=== PATIENT | male | born 1950 | race Caucasian/White ===

== ENCOUNTER 2023-06-15 08:27 | Outpatient (CLI) | payer MEDICARE, SELFPAY | END 2023-06-15 08:28 | disposition home or self-care (01) | PROVIDERS: PCP Family Medicine; Visit Provider Family Medicine | DX: Z13.1 Encounter for screening for diabetes mellitus (principal); Z13.220 Encounter for screening for lipoid disorders; Z13.21 Encounter for screening for nutritional disorder | CPT/HCPCS: 80048; 80061; 82607 ==

== ENCOUNTER 2023-07-30 07:05 | Outpatient (CLI) | payer MEDICARE, SELFPAY ==
--- NOTE | 2023-07-30 08:11 | W.ANESCHARGE ---
Anesthesia Charges Start Date/Time Anesthesia Start Date: 07/30/23 Anesthesia Start Time: 08:15 Stop Date/Time Anesthesia Stop Date: 07/30/23 Anesthesia Stop Time: 08:47 Summary Extremes of Age - Over 70 or under 1: H[employer]OCIATE
--- NOTE | 2023-07-30 10:05 | W.ANESCHARGE ---
Anesthesia Charges Start Date/Time Anesthesia Start Date: 07/30/23 Anesthesia Start Time: 08:15 Stop Date/Time Anesthesia Stop Date: 07/30/23 Anesthesia Stop Time: 08:47 Summary Extremes of Age - Over 70 or under 1: MDA
== END 2023-07-30 07:06 | disposition home or self-care (01) ==
LOC: OP CLINIC 07:06
PROVIDERS: PCP Family Medicine; Visit Provider Surgery
DX: Z12.11 Encounter for screening for malignant neoplasm of colon (principal); Z86.010 Personal history of colon polyps
CPT/HCPCS: 00812; 45378; 99100; J2704

== ENCOUNTER 2024-12-24 13:15 | Outpatient (CLI) | payer MEDICARE, SELFPAY | END 2024-12-24 13:16 | disposition home or self-care (01) | PROVIDERS: PCP Family Medicine; Visit Provider Family Medicine | DX: Z13.1 Encounter for screening for diabetes mellitus (principal); Z13.6 Encounter for screening for cardiovascular disorders | CPT/HCPCS: 80048; 80061 ==

== ENCOUNTER 2025-03-09 07:57 | Emergency (ER) | payer MEDICARE, SELFPAY ==
[2025-03-09] VITALS (17 sets, daily range): BP systolic 134–213; BP diastolic 75–103; PULSE 49–72; RESP 11–17; TEMP 35.3; O2SAT 93–98; BMI 27.1
--- NOTE | 2025-03-09 08:14 | CRLHL7_ITS ---
For Patients: As a result of the Century Cures Act, medical imaging exams and procedure reports are released immediately into your electronic medical record. You may view this report before your referring provider. If you have questions, please contact your health care provider. INDICATION: CORNELIUS, LEFT EYE VISUAL DISTURBANCE COMPARISON: none TECHNIQUE: A CT volumetric acquisition was performed of the brain without IV contrast. Please note that all CT scans at this facility use dose modulation, iterative reconstruction, and/or weight-based dosing when appropriate to reduce radiation dose to as low as reasonably achievable. FINDINGS: No intracranial hemorrhage, mass or mass effect. Mild periventricular and subcortical white matter noted bilaterally. No hydrocephalus or extra-axial fluid. No midline shift. Minimal bilateral sinus disease. Degenerative joint disease at the left temporomandibular joint. IMPRESSION: No intracranial hemorrhage or hydrocephalus. Please note that all CT scans at this facility use dose modulation, iterative reconstruction, and/or weight-based dosing when appropriate to reduce radiation dose to as low as reasonably achievable. Dictated by Jerry Mari MD @ 03/09/2025 8:58:42 AM (Electronically Signed)
--- NOTE | 2025-03-09 08:17 | ED.CHESTPAIN ---
HPI - Chest Pain General Time Seen by Provider: 08:17 Date Seen: 03/09/25 Chief Complaint: Chest Pain Stated Complaint: Chest/R arm pain Time Seen by Provider: 03/09/25 08:16 Source: patient and RN notes reviewed Mode of arrival: ambulatory Limitations: no limitations History of Present Illness HPI narrative: This 75-year-old male is reporting sharp stabbing chest pain in his right chest at 6:30 a.m. this morning, went through to his back, up his neck and down his right arm. He states his initial pain was 10/10, has improved down to 3/10. He started to note kaleidoscope vision in his left eye during triage. The chest pain started suddenly around 630 this morning, felt a stabbing sharp pain in his right upper chest, went into his back, accompanied referred pain into his right arm, right neck. His right arm felt numb and tingly with this. He has had an episode like this a couple months ago but did not get evaluated. Like this, it came on suddenly and then slowly went away. His continues to improve. There is no associated shortness of breath, no associated nausea or GI symptoms. He has not felt any palpitations. He had brief episode of the visual disturbances after arriving here, noticed it more in his left eye. Has had episodes of this type of visual change before. He states he also has floaters, 3 different types in his eyes. His eye doctor is aware. His visual disturbance is gone now. He also notes years ago he had an episode where he just suddenly lost the use of his right arm, was numb and tingly and ??. By the time he got to the doctor, symptoms had improved. He states they did ?scans and did not find anything. He is on no blood thinners, did tell nursing staff he had a slight right headache at this time as well. He has no prior cardiac history or vascular history. Patient's mom of congestive heart failure at age 91 or 92. His dad old age and natural causes as far as they know. There is no known underlying cardiac disease like heart attacks or vascular surgeries in his family that he is aware of. Related Data Home Medications ?Medication ?Instructions ?Recorded ?Confirmed No Known Home Medications 03/09/25 03/09/25 Allergies Allergy/AdvReac Type Severity Reaction Status Date / Time Filbert Allergy Unknown Uncoded 12/24/24 12:40 Review of Systems Status of ROS Reports: 6 or more systems reviewed and unremarkable except as noted in History and below PFSH PFS Medical History Seasonal allergic rhinitis (03/20/11) ?J30.2 - Other seasonal allergic rhinitis (ICD-10) Surgical History S/P right knee arthroscopy ?Z98.890 - Other specified postprocedural states (ICD-10) Status post laparotomy ?Z98.890 - Other specified postprocedural states (ICD-10) Status post bilateral inguinal hernia repair (02/15/09) ?Z98.890 - Other specified postprocedural states (ICD-10) ?Z87.19 - Personal history of other diseases of the digestive system (ICD-10) History of colonoscopy ?Z98.890 - Other specified postprocedural states (ICD-10) History of cholecystectomy ?Z90.49 - Acquired absence of other specified parts of digestive tract (ICD-10) Family History Other Colon cancer Social History What is your current living situation?: I presently have a place to live Problems where you live: no known problems In the past 12 months, utilities in danger of being shut off: no In past 12 months, lack of transportation kept you from medical appts, meetings, work, or getting things needed for daily living: no In the past 12 mos, have been you worried that your food would run out before you had money to buy more?: never true In the past 12 mos, the food you bought just didn't last and you didn't have money to buy more?: never true How often does anyone, including family, friends and others, physically hurt you: never How often does anyone, including family, friends and others, insult or talk down to you: never How often does anyone, including family, friends and others, threaten you with harm: never How often does anyone, including family, friends and others, scream or curse at you: never Exam Const Vital Signs, click to edit/add: Vital Signs - 24 hr 03/09/25 08:01 03/09/25 08:12 03/09/25 08:25 Temperature 95.5 F L Pulse Rate 54 L Pulse Rate [Pulse Oximeter] 72 Respiratory Rate 16 Blood Pressure 165/85 H Blood Pressure [Left Upper Arm] 179/84 H Blood Pressure [Right Upper Arm] 213/78 H Pulse Oximetry 98 97 97 Oxygen Delivery Method Room Air 03/09/25 08:30 03/09/25 08:31 03/09/25 08:32 Temperature Pulse Rate 50 L 52 L 50 L Pulse Rate [Pulse Oximeter] Respiratory Rate 16 12 16 Blood Pressure 151/79 H Blood Pressure [Left Upper Arm] Blood Pressure [Right Upper Arm] Pulse Oximetry 97 96 97 Oxygen Delivery Method 03/09/25 08:59 03/09/25 09:00 03/09/25 09:01 Temperature Pulse Rate 50 L 50 L 50 L Pulse Rate [Pulse Oximeter] Respiratory Rate 11 L 14 16 Blood Pressure 172/103 H Blood Pressure [Left Upper Arm] Blood Pressure [Right Upper Arm] Pulse Oximetry 97 96 97 Oxygen Delivery Method 03/09/25 09:03 03/09/25 09:15 03/09/25 09:17 Temperature Pulse Rate 49 L 49 L 50 L Pulse Rate [Pulse Oximeter] Respiratory Rate 16 16 14 Blood Pressure 161/88 H 134/75 Blood Pressure [Left Upper Arm] Blood Pressure [Right Upper Arm] Pulse Oximetry 98 96 96 Oxygen Delivery Method 03/09/25 09:18 03/09/25 09:30 03/09/25 09:32 Temperature Pulse Rate 49 L 50 L 51 L Pulse Rate [Pulse Oximeter] Respiratory Rate 16 17 15 Blood Pressure 149/86 H Blood Pressure [Left Upper Arm] Blood Pressure [Right Upper Arm] Pulse Oximetry 96 95 93 Oxygen Delivery Method 03/09/25 09:45 03/09/25 09:46 Temperature Pulse Rate 52 L 51 L Pulse Rate [Pulse Oximeter] Respiratory Rate 14 16 Blood Pressure 154/75 H Blood Pressure [Left Upper Arm] Blood Pressure [Right Upper Arm] Pulse Oximetry 94 94 Oxygen Delivery Method Initial blood pressures noted, his blood pressure systolic is now down to 160s. He is alert, interactive, no apparent distress. Sitting upright and comfortable appearing in exam room 8. Denies any visual disturbances, no gross visual abnormality on confrontation. Pupils are equal round reactive, sclera clear, extraocular muscles intact. Symmetrical facial function, speech normal. Neck slender, no jugular venous distension, no masses. Lungs are clear, good air entry, no wheezing crackles, no tachypnea, no accessory muscle use. CV regular rate and rhythm, no murmur, normal S1-S2. Abdomen is soft, nontender, nondistended, organomegaly, rebound or guarding. He has no lower extremity edema. Strength is 5 5 and symmetric throughout his upper extremities, can lift each leg off the bed. He has no baseline tremors. He has normal [id number], has seemingly normal light touch sensation at this time. On initial examination, would give him an NIH of 0 at this time. Documenting provider has reviewed patient's vital signs: yes Course Course ED Course: This is a 75-year-old male coming in with sudden right-sided chest pain. Coronary ischemia certainly could be a possibility but other vascular etiologies like dissection need to be considered. With his visual changes, certainly need to consider vascular etiologies. We are going to start with a noncontrast head CT. His symptoms that would be considered neurologic with the visual changes are gone now. I do think we have some time to work through this and get appropriate vascular imaging if need be. We will do a D-dimer, if this is elevated, do think we need to look at the triple a protocol and potentially could at in had vascular imaging with that as well, would have to talk to Radiology to see if they can do both protocols together if needed. Right now his blood pressure has improved, came in quite hypertensive. His initial EKG is reassuring, he is still in sinus bradycardia on his monitor when I am in with him. He will be monitored on cardiac monitoring for arrhythmia, changes in his EKG, will follow with pulse oximetry to look for hypoxia as well. May ultimately need to talk to Neurology, plus-minus cardiology on this patient. He does not think he has ever had any cardiac stress testing. Reevaluation(s) Time of Reevaluation #1: 09:57 Reevaluation #1: Patient's is present now. Reviewed that the initial labs, head CT, chest x-ray are all reassuring. His D-dimer is normal. He feels much better, me be feels just a little residual something but no significant pain at this time. We did review that we will do a follow-up heart enzyme at 10:20 a.m. to ensure no changing. This is normal, likely discharge to home. He notes the last time this happened, he had not ate or drank anything. He had not eaten breakfast this morning, no coughing no oral intake. I do suppose it could be GI related but it is difficult to say at this time. He sees Dr. Franklin, can have him follow up in clinic with him, they can review further testing such as cardiac stress testing. He does have an eye doctor appointment coming up in 2 weeks which I have was happy to hear he has. I was going to recommend that he follow-up with the eye doctor as well. Await his follow-up troponin result. Time of Reevaluation #2: 11:08 Reevaluation #2: Have reviewed with patient and his that his labs have come back normal. He is without any concerning symptoms at this time. We did discuss heart disease and heart blockages specifically. They had questions as to how we figure out people need to go to bypass. Reviewed with them that if people have vessel disease significant enough for bypass, we usually see changes within the EKGs or troponins, those patients may have heart attacks. He has not been completely ruled out for heart disease but it is unlikely that he has any critical stenosis at this time, has not had a heart attack, has no evidence of any elevated troponins. We did discuss alternate etiologies like esophageal problems, he does have underlying GERD. He can talk to his primary more about this. I do think they should proceed with cardiac stress testing but will leave this to his primary. Other testing like EGD or even possibly swallow study down the road if he has ongoing symptoms may need to be considered and etiologies not being found. His primary care provider is very capable of addressing this with him. Vital Signs Vital signs: Initial Vital Signs Temperature 95.5 F L 03/09/25 08:01 Temperature Source Temporal Artery Scan 03/09/25 08:01 Pulse Rate 72 03/09/25 08:01 Respiratory Rate 16 03/09/25 08:01 Blood Pressure 213/78 H 03/09/25 08:01 Blood Pressure Mean 123 H 03/09/25 08:01 Blood Pressure Position Sitting 03/09/25 08:01 Pulse Oximetry 98 03/09/25 08:01 Oxygen Delivery Method Room Air 03/09/25 08:01 Vital Signs Temperature 95.5 F L 03/09/25 08:01 Pulse Rate 72 03/09/25 08:01 Respiratory Rate 16 03/09/25 08:01 Blood Pressure 213/78 H 03/09/25 08:01 Pulse Oximetry 98 03/09/25 08:01 Oxygen Delivery Method Room Air 03/09/25 08:01 Temperature 95.5 F L 03/09/25 08:01 Pulse Rate 51 L 03/09/25 09:46 Respiratory Rate 16 03/09/25 09:46 Blood Pressure 154/75 H 03/09/25 09:46 Pulse Oximetry 94 03/09/25 09:46 Oxygen Delivery Method Room Air 03/09/25 08:01 MDM - Chest Pain Lab Data Attestation: I reviewed the patient's lab results. Labs: Lab Results 03/09/25 03/09/25 03/09/25 Range/Units 08:20 08:26 10:20 WBC 5.56 (4.50-11.00) K/uL RBC 4.80 (4.30-5.90) m/uL Hgb 15.2 (13.5-17.5) gm/dL Hct 45.5 (37.0-53.0) % MCV 95 (80-100) fL MCH 32 (26-34) pg MCHC 33 (32-36) gm/dL RDW Coeff of Enio 12.8 (11.5-15.5) % Plt Count 235 (140-440) K/uL Neut % (Auto) 56.8 (42.0-72.0) % Lymph % (Auto) 29.0 (20-44) % [place] % (Auto) 8.6 (0.0-11.0) % Eos % (Auto) 4.1 (0.0-7.0) % Baso % (Auto) 1.1 (0.0-3.0) % Neut # (Auto) 3.16 (1.7-7.0) K/uL Lymph # (Auto) 1.61 (0.90-2.90) K/uL [place] # (Auto) 0.50 (0.00-0.90) K/UL Eos # (Auto) 0.23 (0.00-0.50) K/uL Baso # (Auto) 0.06 (0.00-0.30) K/uL Abs Immat Gran (auto) 0.02 (0.00-0.30) K/uL Imm/Tot Granulo (auto) 0.4 % D-Dimer Quant (PE/DVT) 0.31 (0.00-0.50) ug/ml Sodium 139 (135-149) mmol/L Potassium 4.1 (3.6-5.1) mmol/L Chloride 103 (96-114) mmol/L Carbon Dioxide 23 (20-32) mmol/L Anion Gap 13 (7-15) mEq/L BUN 19 (7-30) mg/dL Creatinine 1.1 (0.5-1.5) mg/dL Estimated Creat Clear 63.70 Estimated GFR 71 ml/min Glucose 112 (60-115) mg/dL Calcium 9.6 (8.4-10.6) mg/dL Magnesium 2.1 (1.5-2.6) mg/dL Total Bilirubin 0.8 (0.1-1.5) mg/dL AST 38 H (12-35) U/L ALT 40 (4-50) U/L Alkaline Phosphatase 55 (40-150) U/L POC Troponin I High Sensi 12.5 12.4 (2.9-28.0) pg/mL C-Reactive Protein < 0.5 L (0.5-1.0) mg/dL NT-Pro-B Natriuret Pep 29 (See Note) pg/mL Total Protein 7.4 (6.0-8.3) g/dL Albumin 4.5 (3.3-5.0) g/dL Imaging Data CT scan - head: Attestation: I have reviewed the pertinent imaging results. Radiologist's impression: Patient: MANUELITO BIANCHI Facility:?[facility] Patient ID:?[id number] Site Patient ID:?[id number]. Site :?[id number] Study:?CT-Head WITHOUT-03/09/2025 8:49:59 AM Ordering Physician:?Bernie Jeronimoce Final Report: INDICATION: CORNELIUS, LEFT EYE VISUAL DISTURBANCE COMPARISON: none TECHNIQUE: A CT volumetric acquisition was performed of the brain without IV contrast. Please note that all CT scans at this facility use dose modulation, iterative reconstruction, and/or weight-based dosing when appropriate to reduce radiation dose to as low as reasonably achievable. FINDINGS: No intracranial hemorrhage, mass or mass effect. Mild periventricular and subcortical white matter noted bilaterally. No hydrocephalus or extra-axial fluid. No midline shift. Minimal bilateral sinus disease. Degenerative joint disease at the left temporomandibular joint. IMPRESSION: No intracranial hemorrhage or hydrocephalus. Please note that all CT scans at this facility use dose modulation, iterative reconstruction, and/or weight-based dosing when appropriate to reduce radiation dose to as low as reasonably achievable. Dictated by Jerry Mari MD @ 03/09/2025 8:58:42 AM (Electronic Signature) Chest x-ray: Attestation: I have reviewed the pertinent imaging results. Radiologist's impression: Patient: MANUELITO BIANCHI Facility:?[facility] Patient ID:?[id number] Site Patient ID:?[id number]. Site :?[id number] Study:?XRay-Chest 1 VIEW-03/09/2025 8:58:02 AM Ordering Physician:Zeus Goodwin Final Report: INDICATION: : R chest pain COMPARISON: Chest radiograph on July 07 2014 TECHNIQUE: One view(s) of the chest FINDINGS: The cardiomediastinal silhouette and pulmonary vasculature are unremarkable. Likely small left epicardial fat pad. There is no focal airspace consolidation, pleural effusion, or pneumothorax. No displaced fractures. IMPRESSION: No acute cardiopulmonary process. Dictated by Todd Quigley MD @ 03/09/2025 9:05:48 AM (Electronic Signature) ECG Data Attestation: I personally reviewed and interpreted this ECG as follows: (Sinus bradycardia, 51 beats per minute. Incomplete right bundle branch block, no evidence of any infarct or ischemia.) ECG interpretation date: 03/09/25 ECG interpretation time: 08:17 Prior ECG tracings: not available for review Discharge Plan Discharge Clinical Impression: Right-sided chest pain, Visual disturbance Patient Disposition: Home, Self-Care Condition: Stable Instructions: Chest Pain (ED), Blurred Vision (ED) Additional Instructions: Please schedule follow-up with Dr. Franklin within the next 1-2 weeks. Discuss further workup with stress testing if he deems appropriate. Please keep the eye appointment you have scheduled. It is unclear what all of these constellation of symptoms mean at this time but your workup here is reassuring and nothing life-threatening was found. If you do have return of symptoms I do recommend re-evaluation in the interim. Activity Level: Activity as Tolerated Prescriptions: No Action No Known Home Medications Follow Up/Referrals: Lio Franklin MD [Primary Care Provider, Family Practice] Stand Alone Forms: [employer] Info Instructions
--- NOTE | 2025-03-09 08:25 | CRLHL7_ITS ---
For Patients: As a result of the Century Cures Act, medical imaging exams and procedure reports are released immediately into your electronic medical record. You may view this report before your referring provider. If you have questions, please contact your health care provider. INDICATION: : R chest pain COMPARISON: Chest radiograph on July 07 2014 TECHNIQUE: One view(s) of the chest FINDINGS: The cardiomediastinal silhouette and pulmonary vasculature are unremarkable. Likely small left epicardial fat pad. There is no focal airspace consolidation, pleural effusion, or pneumothorax. No displaced fractures. IMPRESSION: No acute cardiopulmonary process. Dictated by Todd Quigley MD @ 03/09/2025 9:05:48 AM (Electronically Signed)
[2025-03-09 08:35] LABS: Hematocrit* 45.5 % (37.0-53.0); Hemoglobin* 15.2 gm/dL (13.5-17.5); Immature Granulocytes Abs Auto 0.02 K/uL (0.00-0.30); Immature Granulocytes Pct Auto 0.4 %; Lymphocytes Absolute Auto 1.61 K/uL (0.90-2.90); Mean Corpuscular HGB Conc 33 gm/dL (32-36); Mean Corpuscular Hemoglobin 32 pg (26-34); Mean Corpuscular Volume 95 fL (80-100); RDW Coefficient of Variation % 12.8 % (11.5-15.5); Red Blood Count* 4.80 m/uL (4.30-5.90); White Blood Count* 5.56 K/uL (4.50-11.00)
[2025-03-09 08:37] LABS: Slide Review Reflex No
[2025-03-09 08:53] LABS: Albumin* 4.5 g/dL (3.3-5.0); Chloride* 103 mmol/L (96-114); Potassium* 4.1 mmol/L (3.6-5.1); Sodium* 139 mmol/L (135-149)
[2025-03-09 08:55] LABS: Alanine Aminotransferase* 40 U/L (4-50); Aspartate Amino Transferase* 38 U/L (12-35); Blood Urea Nitrogen* 19 mg/dL (7-30); Creatinine* 1.1 mg/dL (0.5-1.5); Est. Creatinine Clearance* 63.70; Estimated Glomerular Filt Rate 71 ml/min
[2025-03-09 08:56] LABS: Alkaline Phosphatase* 55 U/L (40-150); Anion Gap 13 mEq/L (7-15); Bilirubin Total* 0.8 mg/dL (0.1-1.5); Calcium* 9.6 mg/dL (8.4-10.6); Carbon Dioxide* 23 mmol/L (20-32); Glucose* 112 mg/dL (60-115); Total Protein* 7.4 g/dL (6.0-8.3)
[2025-03-09 09:00] LABS: D Dimer Quantitative* 0.31 ug/ml (0.00-0.50)
[2025-03-09 09:08] LABS: NT Pro B Type NatriureticPept* 29 pg/mL (See Note)
== END 2025-03-09 11:25 | disposition home or self-care (01) ==
PROVIDERS: Emergency Provider Family Medicine; PCP Family Medicine
DX: R07.89 Other chest pain (principal); H53.9 Unspecified visual disturbance
CPT/HCPCS: 36415; 70450; 71045; 80053; 83735; 83880; 84484; 85025; 85379; 86140; 93005; 94761; 99284; 99285